=== PATIENT | male | born 1965 | race Caucasian/White ===

== ENCOUNTER 2020-07-21 10:47 | Inpatient (IN) | payer SELFPAY ==
--- NOTE | 2020-07-21 11:04 | CT ---
Exam: CT brain PROVIDED CLINICAL HISTORY: Slurred speech and dizziness COMPARISON: None FINDINGS: The ventricular system is normal in size and morphology. No evidence for intracranial hemorrhage or mass effect. The extracranial soft tissues and osseous structures demonstrate no evidence for an acute abnormality. Paranasal sinus mucosal disease is demonstrated. IMPRESSION: No evidence for intracranial hemorrhage or mass effect. Findings discussed with Dr. Coppola 11:01 AM 06/25.
[2020-07-21 11:11] LABS: #Basophils 0.1 thou/uL (0.0-0.2); #Eosinphils 0.4 thou/uL (0.0-0.7); #Monocytes 0.6 thou/uL (0.11-0.59); #Neutrophils 3.9 thou/uL (1.40-6.50); %Basophils 1.2 % (0.0-1.0); %Eosinophils 5.1 % (0.0-10.0); %Lymphocytes 28.6 % (21.0-51.0); %Monocytes 9.3 % (0.0-10.0); %Neutrophils 55.9 % (42.0-75.0); Hemoglobin 15.2 g/dL (14.0-18.0); Mean Corpuscular HGB CONC 33.6 g/dL (32.0-36.0); Mean Corpuscular Hemoglobin 30.8 pg (27.0-31.0); Mean Corpuscular Volume 91.7 fL (78.0-98.0); Mean Platelet Volume 7.4 fL (7.4-10.4); Platelet Count 306 thou/uL (130-400); RBC Distribution Width 11.4 % (11.5-14.5); Red Blood Cell (RBC) Count 4.94 mill/uL (4.70-6.10); White Blood Cell (WBC) Count 6.9 thou/uL (4.8-10.8)
[2020-07-21 11:19] LABS: INR-International Normal Ratio 0.9; PTT 25.4 sec (22.9-36.1); Prothrombin Time 12.8 sec (12.0-14.7)
[2020-07-21 11:41] LABS: ALT (SGPT) 26 U/L (8-55); AST (SGOT) 16 U/L (5-34); Alkaline Phosphatase 106 U/L (40-110); Anion Gap 12 mmol/L (10-20); BUN (Urea Nitrogen) 12 mg/dL (8.4-25.7); Bilirubin, Total 0.7 mg/dL (0.2-1.2); CK (CPK) 61 U/L (30-200); Calc. Creatinine Clearance 0 mL/min (70-130); Calcium 8.7 mg/dL (7.8-10.44); Carbon Dioxide 26 mmol/L (22-29); Chloride 105 mmol/L (98-107); Globulin 3.2 g/dL (2.4-3.5); Glucose 124 mg/dL (70-105); Potassium 4.1 mmol/L (3.5-5.1); Protein, Total 7.2 g/dL (6.0-8.3); Sodium 139 mmol/L (136-145)
--- NOTE | 2020-07-21 11:57 | CT ---
EXAM: CT angiogram head and neck with IV contrast and 3-D reconstructions PROVIDED CLINICAL HISTORY: Level 1 stroke. Slurred speech and dizziness. COMPARISON: None FINDINGS: There is a normal arrangement of great vessels at the aortic arch which are patent. Portions of the r ight subclavian artery are obscured due to artifact from dense adjacent venous contrast. The left subclavian, innominate, and bilateral common carotid arteries are patent. Bilateral internal carotid arteries are patent. Patent bilateral vertebral arteries are present. The left vertebral artery is dominant. Basilar arter y and posterior cerebral arteries are patent bilaterally Bilateral anterior cerebral and middle cerebral arteries are patent without focal stenosis or branch occlusion. No intracranial aneurysm is visualized. Mucosal thickening is present involving the bilateral maxillary antra, sphenoid sinuses, and bilatera l ethmoidal air cells. Visualized upper lung zones are clear. Small subcentimeter increased density focus is seen in the right parotid gland likely due to an intra parotid lymph node. IMPRESSION: 1. No focal stenosis or branch occlusion is seen involving the [place] of [place] or vertebrobasilar sy stem. 2. Patent bilateral internal carotid arteries. 3. Above findings discussed Dr. Coppola in the emergency department on 07/21/2020 at 1152 hours
--- NOTE | 2020-07-21 11:59 | RAD ---
EXAM: Portable chest PROVIDED CLINICAL HISTORY: Slurred speech COMPARISON: None FINDINGS: Cardiac and mediastinal silhouette is within normal limits. No focal consolidation, pleural fluid or pneumothorax evident. IMPRESSION: No evidence for an acute cardiopulmonary process.
[2020-07-21] MEDS ORDERED: Iopamidol-370 76% 500 ML 1 ML ONE (13:34)
--- NOTE | 2020-07-21 13:38 | PDOC.FPRHP ---
- History of Present Illness Chief Complaint: dizziness History of Present Illness: 55 y/o M with no known PMHx presented to the ER for symptoms of dizziness, slurred speech, and facial drooping. Pt states he was in the check out mikie at [facility] this AM when he began to feel "funny". He became dizzy and his drove them to their home. She then noticed he was having slurred speech and R sided facial drooping, and immediately brought him to the ER. Per pt and his , they arrived in the ER within 30 minutes of symptom onset. He denies any focal weakness other than his R sided facial drooping, but states that during the episode he did have difficulty walking and blurry vision. After arrival in the ER, his symptoms began to somewhat improve. TPA was administered in the ER and patient reports complete resolution of his symptoms. ED Course: CT head: no acute intracranial hemorrhage, CTA head/neck: no occlusion/stenosis of large vessels, TPA administered from 1216 to 1316. 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 PSHx: bilateral inguinal hernia repair FHx: father of ME age 56, grandfather of [place] Social: etoh use approx 12 beers each weekend day, no etoh use during week, chewing tobacco 1 can/day, denies drug use - Review of Systems General: denies: fever/chills, fatigue Eyes: reports: vision changes ENT: denies: nasal congestion, rhinorrhea Respiratory: denies: cough, congestion, shortness of breath Cardiovascular: denies: chest pain, palpitation, edema Gastrointestinal: denies: nausea, vomiting, diarrhea, constipation, abdominal pain Genitourinary: denies: dysuria Skin: denies: rashes Musculoskeletal: denies: pain Neurological: reports: other (dizziness, facial drooping, slurred speech). denies: numbness, syncope, seizure, weakness Psychological: denies: anxiety, depression - Vital signs BP:130/83 HR: 73 RR: 16 Tmax: 97.9F Pox: 98% on RA Wt: 77.9 kg - Physical Exam Constitutional: NAD, awake, alert and oriented, well developed HEENT: normocephalic and atraumatic, EOMI, conjunctiva clear, no scleral icterus, grossly normal hearing, MMM, other (poor dentition) Neck: supple Chest: no-tender to palpation Heart: RRR, normal S1/S2, no murmurs/rubs/gallops, pulses present, no edema Lungs: CTAB, no respiratory distress, no rales/rhonchi, no wheezing, no retractions Abdomen: soft, non-tender, bowel sounds present Musculoskeletal: normal structure Neurological: CN II-XII intact, normal sensation, other (4/5 RLE weakness, 5/5 LLE; 5/5 strength bilat UE) Skin: capillary refill <2 seconds Heme/Lymphatic: no unusual bruising or bleeding Psychiatric: normal mood and affect, good judgment and insight, intact recent and remote memory FMR H&P: Results - Labs Result Diagrams: 07/21/20 10:54 07/21/20 10:54 Lab results: WBC 6.9 thou/uL (4.8-10.8) 07/21/20 10:54 Hgb 15.2 g/dL (14.0-18.0) 07/21/20 10:54 Hct 45.3 % (42.0-52.0) 07/21/20 10:54 MCV 91.7 fL (78.0-98.0) 07/21/20 10:54 Plt Count 306 thou/uL (130-400) 07/21/20 10:54 Neutrophils % 55.9 % (42.0-75.0) 07/21/20 10:54 Sodium 139 mmol/L (136-145) 07/21/20 10:54 Potassium 4.1 mmol/L (3.5-5.1) 07/21/20 10:54 Chloride 105 mmol/L (98-107) 07/21/20 10:54 Carbon Dioxide 26 mmol/L (22-29) 07/21/20 10:54 BUN 12 mg/dL (8.4-25.7) 07/21/20 10:54 Creatinine 1.23 mg/dL (0.7-1.3) 07/21/20 10:54 Glucose 124 mg/dL (70-105) H 07/21/20 10:54 Calcium 8.7 mg/dL (7.8-10.44) 07/21/20 10:54 Total Bilirubin 0.7 mg/dL (0.2-1.2) 07/21/20 10:54 AST 16 U/L (5-34) 07/21/20 10:54 ALT 26 U/L (8-55) 07/21/20 10:54 Alkaline Phosphatase 106 U/L (40-110) 07/21/20 10:54 Creatine Kinase 61 U/L (30-200) 07/21/20 10:54 Serum Total Protein 7.2 g/dL (6.0-8.3) 07/21/20 10:54 Albumin 4.0 g/dL (3.5-5.0) 07/21/20 10:54 - EKG Interpretation EKG: NSR, RBBB, rate 73 FMR H&P: A/P - Plan Acute CVA, presumed RLE weakness Clinical signs of CVA on presentation with HINTS exam positive for head impulse per report, improved with administration of tPA in the ED. CT head negative for acute bleeding, CTA head/neck negative for stenosis of major vasculature. VSS. 4/5 RLE weakness, suspect due to stroke. - admit to CCU for frequent neuro checks, per protocol - strict bedrest for 24hr s/p tPA - monitor telemetry - maintain BP <180/105, treat PRN - PPI for GI ppx s/p tPA - echo pending - MRI brain pending - start atorvastatin 40 mg PO daily - consult to stroke team: neurology, PT/OT - may advance to heart healthy diet when passed BSS - no blood draws x 24 hr after tPA - will check TSH, Hga1c, lipid panel; add to drawn labs or defer until 24hr after tPA Alcohol use Endorses 12 beers each wednesday/wednesday, no etoh during weekdays. Last drink yesterday. - ASE protocol, please page for high scores before administering medication Tobacco use Chewing tobacco, 1 can/day. - nicotine patch - encourage tobacco cessation Dispo: Admit to CCU for 24 hr due to frequent neuro checks s/p tPA (administered 1216 - 1316 on 07/21). Likely will be able to transfer to stroke after this. Will need PT/OT evaluation, MRI, echo prior to discharge. Anticipated LOS >48hr. FMR H&P: Upper Level - Plan Date/Time: 07/21/20 3256 I, Ros Ac, have evaluated this patient and agree with findings/plan as outlined by public relations intern resident. Pertinent changes/additions are listed here. 55 yo M basim with no prior PMH presents for slurred speech, vertigo, right facial droop, and unsteadiness on his feet that occurred at 10 AM this morning while at [facility]. His slurred speech had resolved by the time he arrived at the ER, however he remained dizzy with unsteadiness. In the ED, CT brain and CTA head/neck were normal. HINTS exam was concerning for central finding on head impulse test. TPA was given at 1216 after discussion with the patient and his . His dizziness and unsteadiness resolved after administration of TPA. On Neuro exam, CN 2-12 were intact. Strength 5/5 BUE, strength 5/5 at ankles but 4/5 for RLE hip flexion compared to 5/5 LLE for hip flexion. FTN, heel to gilmore testing were normal. No dysdiadochokinesis present. Speech was not slurred. A/P: CVA - Positive HINTS exam per Ed physicians - CT brain and CTA head/neck WNL - TPA administered @ 1216 on 07/21 - TPA protocol ordered. Avoid lab draws for next 24 hours. Monitor NIH scores per protocol. - MRI and echo ordered - Stroke team consulted, Dr. Nicholson, appreciate recommendations - TSH, A1C, lipid panel added to [id number] labs - NPO for speech, then HH - Add statin, hold starting aspirin for now due to risk of bleeding - PPI Nicotine abuse -Patient dips 1 can/day -Patch added Alcohol abuse -Binges on weekends, last drink yesterday evening. Reports he drank 12 beers yesterday. -He reports he does not drink during the week -Unlikely have alcohol withdrawal, however ASE protocol has been added Laura Ac MD PGY3 Addendum - Attending - Attending Attestation Date/Time: 07/21/20 8440 I personally evaluated the patient and discussed the management with Dr. Palumbo/Yashira. I agree with the History, Examination, Assessment and Plan documented above with any addition or exceptions noted below. Presented with symptoms concerning for posterior circulation CVA. s/p tPA. no PMH but poor outpt f/u. exam unremarkable s/p tPA. continue post tPA care. MRI, TTE, FLP tomorrow. [facility] team consulted.
[2020-07-21 14:01] LABS: SARS-CoV-2 NAA Rapid Test Not Detected (NotDetected)
[2020-07-21] MEDS ORDERED: Labetalol HCl 100 MG/20 ML VIAL SLOW IVP PRN (14:11)
[2020-07-21] MEDS ORDERED: niCARdipine 25 MG in Sodium Chloride 0.9% 250 ML 250 ML IVPB PRN (14:11)
[2020-07-21] MEDS ORDERED: hydrALAZINE 20 MG/ML VIAL SLOW IVP PRN (14:11)
[2020-07-21] MEDS ORDERED: Communication Order-Pharmacy FS SCH (14:11)
[2020-07-21] MEDS ORDERED: Acetaminophen 325 MG TAB PO PRN (14:11)
[2020-07-21] MEDS ORDERED: Thiamine 100 MG TAB PO SCH (14:45)
[2020-07-21 14:58] LABS: Hemoglobin A1c 5.6 % (4.0-6.0)
[2020-07-21 16:04] VITALS: BMI 28.2
[2020-07-21] MEDS: Nicotine 14 MG PATCH TD SCH (16:44)
[2020-07-21 17:23] LABS: Cardiac Risk 6.3 (Less than 4.5)
[2020-07-21] MEDS ORDERED: Atorvastatin Calcium 40 MG TAB PO SCH (21:00)
--- NOTE | 2020-07-22 06:14 | PDOC.FM ---
- Subjective Subjective: Patient was resting comfortably in bed at the time of evaluation. Patient denied any acute overnight events, but did endorse some mild chest wall tenderness that he attributed to "sleeping on it wrong." Patient denied worrisome associated symptoms such as crushing chest pain, N/V, diaphoresis or visual disturbances. Patient also denied repeat episodes of confusion, slurred speech or facial drooping. - Objective Vital Signs & Weight: Vital Signs (12 hours) Temp Pulse Ox 07/22/20 04:00 98.4 F 07/22/20 00:00 98.0 F 07/21/20 20:00 94 L 07/21/20 19:00 98.0 F Weight Weight 85 kg Most Recent Monitor Data Heart Rate from ECG 59 NIBP 92/51 NIBP BP-Mean 64 Respiration from ECG 16 SpO2 94 I&O: 07/20/20 07/21/20 07/22/20 06:59 06:59 06:59 Intake Total 630 Output Total 940 Balance -310 Result Diagrams: 07/21/20 10:54 07/21/20 10:54 Phys Exam - Physical Examination Constitutional: NAD HEENT: PERRLA, moist MMs, sclera anicteric, oral pharynx no lesions Neck: no nodes, supple, full ROM Respiratory: no wheezing, no rales, no rhonchi, clear to auscultation bilateral Cardiovascular: RRR, no significant murmur, no rub Gastrointestinal: soft, non-tender, no distention, positive bowel sounds Musculoskeletal: pulses present Neurological: non-focal, normal sensation, moves all 4 limbs NIH: 0 Psychiatric: normal affect, A&O x 3 No tremor noted - low suspicion for EtOH Withdrawal Dx/Plan (1) CVA (cerebral vascular accident) Code(s): I63.9 - CEREBRAL INFARCTION, UNSPECIFIED Status: Acute (2) Tobacco abuse Code(s): Z72.0 - TOBACCO USE Status: Chronic (3) ETOH abuse Code(s): F10.10 - ALCOHOL ABUSE, UNCOMPLICATED Status: Chronic - Plan Plan: Patient is a 55 y/o male with no known PMH who presented to the ED for evaluation after an episode of facial drooping, slurred speech and mild confusion. #Acute CVA, suspected -Clinical signs of CVA on presentation with HINTS exam positive for head impulse, per report -Patient's symptoms resolved s/p tPA administration in the ED -MRI: Pending -Echo: Pending -CT Head: NAF -CTA Head/Neck: NAF -CXR: NAF -FLP: Tri(213) Chol(194) LDL(120) HDL(31) - will increase Atorvastatin from 40 mg PO daily to 80 mg PO daily based on likely Hx of CVA -HgA1c: 5.6 -TSH: 1.73 -Trop: 0.017 -Neuro Consult: Pending -Stroke Team Consult: Pending -PT/OT Consult: Pending -Maintain BP <180/105, treat PRN -No blood draws for 24H s/p tPA administration #Alcohol use -Reports a Hx of 12 servings of EtOH per day on the weekends, last drink was 07/20 -Will supplement diet with Thiamine and Folate -ASE Protocol - discussed with Nursing Staff on 07/22 #Tobacco use -Reports a Hx of Tobacco Abuse - 1 can per day -Nicotine Patch 21 mg TD daily -Encouraged Tobacco Abuse cessation s/p DC PCP: None Code: Full Diet: HH Activity: Strict Bedrest s/p tPA Administration VTE PPx: None s/p tPA Administration IVF: None GI PPx: Protonix 40 mg daily Dispo: Patient is currently stable and admitted to the CCU for 24H of monitoring w/ frequent Neuro Check s/p tPA administration, per protocol. Per report, tPA was administered from 1216 - 1316 on 07/21 - will likely will be able to transfer to Stroke Floor if remainder of monitoring period remains unremarkable. Risk Stratification completed, with Atorvastatin 80 mg PO daily added to current medication regimen - will add daily ASA at DC. MRI, Echo pending. Neuro, PT/OT, Stroke Team consults currently pending. Will continue to manage EtOH Abuse and Tobacco Abuse as per above. Expected LOS <48H. Addendum - Attending - Attending Attestation Date/Time: 07/22/20 7816 I personally evaluated the patient and discussed the management with Dr. Joyce. I agree with the History, Examination, Assessment and Plan documented above with any addition or exceptions noted below.
[2020-07-22] MEDS: Thiamine 100 MG TAB PO SCH (08:08)
[2020-07-22] MEDS: Folic Acid 1 MG TAB PO SCH (08:08)
[2020-07-22] MEDS ORDERED: FLU VACC QS2020-21(6MOS UP)/PF 60 MCG/0.5 ML SYRINGE IM ONE (09:00)
--- NOTE | 2020-07-22 09:53 | MRI ---
MRI BRAIN NONCONTRAST: DATE: 07/22/2020 HISTORY: 55-year-old male status post TPA for stroke: Dysarthria and dizziness FINDINGS: There is no obstructive hydrocephalus. There is no midline shift or any other evidence of mass effect . There is no extra-axial fluid collection. There are minimal chronic ischemic white matter changes due to microvascular atherosclerosis. There is otherwise no major intra-axial signal abnormality, rec ent hemorrhage, or restricted diffusion. IMPRESSION: 1) minimal chronic ischemic white matter changes. 2) otherwise negative
--- NOTE | 2020-07-22 12:50 | CON ---
NEUROLOGY CONSULTATION DATE OF CONSULTATION: 07/22/2020 REASON FOR CONSULTATION: TIA, status post tPA. HISTORY OF PRESENT ILLNESS: Mr. Capps is a 55-year-old male with history of significant for alcohol abuse, presented to the emergency room with dizziness, slurred speech and facial droop. Per patient, he was in the checkout line at the [facility] on the morning of 07/21/2020, when he began to feel funny and feel dizzy, and the drove him to their home. She noted that he was having slurred speech and right facial droop, so she decided to bring him to the emergency room for further evaluation. Per the patient and when they arrived in the emergency room, there were within 30 minutes of symptom onset. Head CT was done, which was negative for acute intracranial pathology. CTA of the head and neck did not reveal hemodynamically significant stenosis. The patient denies any focal weakness, focal paresthesias, nausea, vomiting, headache, chest pain, abdominal pain, recent illness or recent exposure to COVID-19. He does have difficulty walking and blurred vision. He was given tPA around 12:15, which he finished around 01:15 and afterwards, the symptoms resolved completely. He is back to the baseline. ALLERGIES: NO KNOWN DRUG ALLERGIES. PAST MEDICAL HISTORY: Alcohol abuse. No medical care for the last 20 years. PAST SURGICAL HISTORY: Bilateral inguinal hernia repair. FAMILY HISTORY: The father of [place] at the age of 46. Grandfather of [place]. SOCIAL HISTORY: The patient with history of alcohol abuse, but 12 beers each weekend. No alcohol use during week. Chewing tobacco one can per day. Denies illegal drug use. REVIEW OF SYSTEMS: All systems reviewed and were negative except the pertinent positives and negatives mentioned in the HPI. Vital Signs & Weight: Vital Signs (12 hours) Temp Pulse Ox 07/22/20 04:00 98.4 F 07/22/20 00:00 98.0 F 07/21/20 20:00 94 L 07/21/20 19:00 98.0 F Weight Weight 85 kg Most Recent Monitor Data Heart Rate from ECG 59 NIBP 92/51 NIBP BP-Mean 64 Respiration from ECG 16 SpO2 94 I&O: 07/20/20 07/21/20 07/22/20 06:59 06:59 06:59 Intake Total 630 Output Total 940 Balance -310 PHYSICAL EXAMINATION: GENERAL: Alert, awake male, in no acute distress. CVS: Regular rate and rhythm. CHEST: Clear. ABDOMEN: Soft. NECK: Supple. NEUROLOGICAL: Mental status, the patient is alert and oriented to person, place, and time. Recent and remote memory intact. Fund of knowledge is appropriate. Speech is clear. Cranial nerves II through XII intact. Motor, muscle tone and bulk are normal. Moving all 4 extremities equally and symmetrically. Strength 5/5 bilaterally. Sensory intact. Cerebellar, finger-nose testing intact. Gait deferred due to patient's safety reason. DATA REVIEWED: Reviewed the labs which were significant for mild hyperglycemia of 124. EKG showed normal sinus rhythm. Head CT did not reveal acute intracranial pathology. ASSESSMENT AND PLAN: (1) Transient Ischemic Attack Status: Acute (2) Tobacco abuse Code(s): Z72.0 - TOBACCO USE Status: Chronic (3) ETOH abuse Code(s): F10.10 - ALCOHOL ABUSE, UNCOMPLICATED Status: Chronic Mr. Terrence Capps is a 55-year-old male, who presented with acute onset dysarthria, dizziness, and right facial droop, which resolved after the administration of tPA. Head CT reviewed which was negative for acute bleed. CT of the head and neck did not reveal hemodynamically significant stenosis. MRI of the brain did not reveal any acute intracranial pathology. 2D echo completed, awaiting results. Repeat head CT 24 hours post tPA if negative, then start aspirin and high-intensity statin for secondary stroke prevention. Strict control of blood pressure and blood glucose. WA protocol. Continue medical management per primary team, PT/OT/Speech. DVT prophylaxis. PLAN: Discussed in detail with the patient, at bedside and also with the nursing staff. We will continue to follow. Thank you for the consult. Job ID: [id number] MTDD
--- NOTE | 2020-07-22 13:29 | CT ---
Exam: Head CT without contrast HISTORY: Status post TPA. Evaluate for hemorrhage COMPARISON: 07/21/2020 FINDINGS: Hemorrhage: No intraparenchymal hemorrhage or extra-axial hematoma. Brain parenchyma: Cortical lacey-white matter differentiation is preserved. No mass effect or midline shift. Basilar cisterns are patent. Ventricular system: Ventricles and sulci are patent and symmetric. Calvarium: Intact. Sinuses and mastoid air cells: Stable sinus opacification IMPRESSION: No evidence of intracranial hemorrhage.
[2020-07-22] MEDS: Nicotine 14 MG PATCH TD SCH (16:26)
[2020-07-22] MEDS ORDERED: Atorvastatin Calcium 40 MG TAB PO SCH (21:00)
[2020-07-23 05:23] VITALS: TEMP 97.5
--- NOTE | 2020-07-23 06:50 | PDOC.FM ---
- Subjective Subjective: Patient was resting comfortably in bed at the time of evaluation. Patient denied any acute overnight events, particularly with regard to mental status changes, feelings of dizziness, confusion, difficulty with ambulation or falls, as well as chest pain, SOB, ABD pain or difficulty passing urine or stool. Per review of Telemetry Floor records, patient maintained NSR in the 70s and 80s overnight, and no acute events were reported by Nursing Staff. - Objective Vital Signs & Weight: Vital Signs (12 hours) Temp Pulse Resp BP Pulse Ox 07/23/20 04:30 97.5 F L 60 14 92/60 96 07/22/20 22:54 97.9 F 62 18 111/78 99 07/22/20 20:00 100 07/22/20 19:00 98.0 F Weight Weight 85 kg Most Recent Monitor Data Heart Rate from ECG 62 NIBP 103/67 NIBP BP-Mean 79 Respiration from ECG 21 SpO2 95 I&O: 07/21/20 07/22/20 07/23/20 06:59 06:59 06:59 Intake Total 630 1200 Output Total 940 1475 Balance -310 -275 Result Diagrams: 07/21/20 10:54 07/21/20 10:54 Phys Exam - Physical Examination Constitutional: NAD HEENT: moist MMs Neck: supple, full ROM Respiratory: no wheezing, no rales, no rhonchi, clear to auscultation bilateral Cardiovascular: RRR, no significant murmur, no rub Gastrointestinal: soft, non-tender, no distention, positive bowel sounds Musculoskeletal: no edema, pulses present Neurological: non-focal, moves all 4 limbs Psychiatric: normal affect, A&O x 3 Dx/Plan (1) CVA (cerebral vascular accident) Code(s): I63.9 - CEREBRAL INFARCTION, UNSPECIFIED Status: Ruled-out (2) Tobacco abuse Code(s): Z72.0 - TOBACCO USE Status: Chronic (3) ETOH abuse Code(s): F10.10 - ALCOHOL ABUSE, UNCOMPLICATED Status: Chronic (4) TIA (transient ischemic attack) Code(s): G45.9 - TRANSIENT CEREBRAL ISCHEMIC ATTACK, UNSPECIFIED Status: Acute - Plan Plan: Patient is a 55 y/o male with no known PMH who presented to the ED for evaluation after an episode of facial drooping, slurred speech and mild confusion. #TIA -Clinical signs of TIA / CVA on presentation with HINTS exam positive for head impulse, per report -Patient's symptoms resolved s/p tPA administration in the ED, administered from ~1200 - 1330 -MRI: NAF -Echo: EF (40-45%), no thrombus or wall defects noted -CT Head: NAF x2 -CTA Head/Neck: NAF -CXR: NAF -FLP: Tri(213) Chol(194) LDL(120) HDL(31) - added Atorvastatin 80 mg PO daily -HgA1c: 5.6 -TSH: 1.73 -Trop: 0.017 -Will start ASA this AM -Neuro: Consulted, recommended initiation of ASA and statin as per above based on likelihood of TIA -Stroke Team consulted - no further recs from PT/OT/Speech -Will plan for DC this AM #Alcohol Abuse -Reports a Hx of 12 servings of EtOH per day on the weekends, last drink was 07/20 -No evidence of EtOH Withdrawal during hospitalization -Will supplement diet with Thiamine and Folate until DC -ASE Protocol - discussed with Nursing Staff on 07/22 #Tobacco Abuse -Reports a Hx of Tobacco Abuse - 1 can of snuff per day -Nicotine Patch 14 mg TD daily -Encouraged Tobacco Abuse cessation s/p DC PCP: None Code: Full Diet: HH Activity: Ad forrest VTE PPx: SCDs IVF: None GI PPx: Protonix 40 mg PO daily Dispo: Patient is currently stable and admitted to the Telemetry Floor following TIA. Due to the timing of the patient's symptoms, tPA was administered in the ED with no notable sequelae. Risk Stratification completed, with ASA 81 mg PO daily and Atorvastatin 80 mg PO daily added to patient's current medication regimen. All standard imaging performed and unremarkable. Patient has been evaluated by Neuro, PT/OT/Speech - recs appreciated. Will likely DC this AM and encourage patient to establish care with a PCP following DC. Expected LOS <12H. Addendum - Attending - Attending Attestation Date/Time: 07/23/20 4136 I personally evaluated the patient and discussed the management with Dr. Joyce. I agree with the History, Examination, Assessment and Plan documented above with any addition or exceptions noted below. Patient stable. Stable for discharge on ASA and statin therapy. No need for therapy services. Suspect TIA as final diagnosis.
[2020-07-23 07:58] VITALS: BP 116/72
[2020-07-23] MEDS ORDERED: Aspirin 81 mg Enteric Coated Tablet PO SCH (09:00)
[2020-07-23] MEDS: Thiamine 100 MG TAB PO SCH (09:08)
[2020-07-23] MEDS: Folic Acid 1 MG TAB PO SCH (09:08)
--- NOTE | 2020-07-23 10:37 | CT ---
EXAM: CT angiogram head and neck with IV contrast and 3-D reconstructions PROVIDED CLINICAL HISTORY: Level 1 stroke. Slurred speech and dizziness. COMPARISON: None FINDINGS: There is a normal arrangement of great vessels at the aortic arch which are patent. Portions of the r ight subclavian artery are obscured due to artifact from dense adjacent venous contrast. The left subclavian, innominate, and bilateral common carotid arteries are patent. Bilateral internal carotid arteries are patent. Patent bilateral vertebral arteries are present. The left vertebral artery is dominant. Basilar arter y and posterior cerebral arteries are patent bilaterally Bilateral anterior cerebral and middle cerebral arteries are patent without focal stenosis or branch occlusion. No intracranial aneurysm is visualized. Mucosal thickening is present involving the bilateral maxillary antra, sphenoid sinuses, and bilatera l ethmoidal air cells. Visualized upper lung zones are clear. Small subcentimeter increased density focus is seen in the right parotid gland likely due to an intra parotid lymph node. IMPRESSION: 1. No focal stenosis or branch occlusion is seen involving the [place] or vertebrobasilar sy stem. 2. Patent bilateral internal carotid arteries. 3. Above findings discussed Dr. Coppola in the emergency department on 07/21/2020 at 1152 hours Transcribed Date/Time: 07/23/2020 10:36 AM
--- NOTE | 2020-07-23 11:56 | PDOC.NEUPN ---
- Subjective Encounter Date: 07/23/20 Subjective: Patient seen this morning and denies any new complaints. - Objective Vital Signs & Weight: Vital Signs (12 hours) Temp Pulse Resp BP Pulse Ox 07/23/20 09:05 94 L 07/23/20 07:06 97.5 F L 62 18 116/72 94 L 07/23/20 04:30 97.5 F L 60 14 92/60 96 Weight Weight 187 lb 6.287 oz Most Recent Monitor Data Heart Rate from ECG 62 NIBP 103/67 NIBP BP-Mean 79 Respiration from ECG 21 SpO2 95 I&O: 07/22/20 07/23/20 07/24/20 06:59 06:59 06:59 Intake Total 630 1200 Output Total 940 1475 Balance -310 -275 Result Diagrams: 07/21/20 10:54 07/21/20 10:54 Radiology Reviewed by me: Yes EKG Reviewed by me: Yes ROS - Review of Systems Constitutional: denies: fever, chills, sweats, weakness, malaise, other Eyes: denies: pain, vision change, conjunctivae inflammation, eyelid inflammation, redness, other Gastrointestinal: denies: nausea, vomiting, abdominal pain, diarrhea, constipation, melena, hematochezia, other Genitourinary: denies: dysuria, frequency, incontinence, hematuria, retention, other Musculoskeletal: denies: neck pain, shoulder pain, arm pain, back pain, hand pain, leg pain, foot pain, other Skin: denies: rash, lesions, edson, bruising, other Neurological: denies: weakness, numbness, incoordination, change in speech, confusion, seizures, other - Exam General Appearance: awake alert Eye: PERRL ENT: normocephalic atraumatic Neck: supple Respiratory: CTAB Cardiovascular: RRR Gastrointestinal: soft Extremities: no cyanosis Skin: normal turgor Neurological: no focal deficits, no new deficit Musculoskeletal: normal tone PSYCH: normal affect, normal behavior, A&O x 3, oriented to person, oriented to place, oriented to time Results - Labs Result Diagrams: 07/21/20 10:54 07/21/20 10:54 Lab results: WBC 6.9 thou/uL (4.8-10.8) 07/21/20 10:54 Hgb 15.2 g/dL (14.0-18.0) 07/21/20 10:54 Hct 45.3 % (42.0-52.0) 07/21/20 10:54 MCV 91.7 fL (78.0-98.0) 07/21/20 10:54 Plt Count 306 thou/uL (130-400) 07/21/20 10:54 Neutrophils % 55.9 % (42.0-75.0) 07/21/20 10:54 Sodium 139 mmol/L (136-145) 07/21/20 10:54 Potassium 4.1 mmol/L (3.5-5.1) 07/21/20 10:54 Chloride 105 mmol/L (98-107) 07/21/20 10:54 Carbon Dioxide 26 mmol/L (22-29) 07/21/20 10:54 BUN 12 mg/dL (8.4-25.7) 07/21/20 10:54 Creatinine 1.23 mg/dL (0.7-1.3) 07/21/20 10:54 Glucose 124 mg/dL (70-105) H 07/21/20 10:54 Calcium 8.7 mg/dL (7.8-10.44) 07/21/20 10:54 Total Bilirubin 0.7 mg/dL (0.2-1.2) 07/21/20 10:54 AST 16 U/L (5-34) 07/21/20 10:54 ALT 26 U/L (8-55) 07/21/20 10:54 Alkaline Phosphatase 106 U/L (40-110) 07/21/20 10:54 Creatine Kinase 61 U/L (30-200) 07/21/20 10:54 Troponin I 0.017 ng/mL (< 0.028) 07/21/20 10:54 Serum Total Protein 7.2 g/dL (6.0-8.3) 07/21/20 10:54 Albumin 4.0 g/dL (3.5-5.0) 07/21/20 10:54 - Radiology Interpretation MRI - head Additional Comment: MRI of the brain was negative for acute intracranial pathology. PN A/P (1) TIA (transient ischemic attack) Code(s): G45.9 - TRANSIENT CEREBRAL ISCHEMIC ATTACK, UNSPECIFIED Status: Acute (2) ETOH abuse Code(s): F10.10 - ALCOHOL ABUSE, UNCOMPLICATED Status: Chronic (3) Tobacco abuse Code(s): Z72.0 - TOBACCO USE Status: Chronic - Plan Daily Plan: plan discussed w/ family, PT/OT, speech therapy, out of bed/ambulate Mr. Capps is a 55-year-old male with medical history significant for alcohol abuse presented with strokelike symptoms. His symptoms resolved after the administration of TPA. Most likely transient ischemic attack. MRI of the brain reviewed which was negative for acute intracranial pathology Head CT 24 hours post TPA was negative for bleed. 2D echo showed left ventricular ejection fraction 40 to 45%. No thrombus or or PFO. CTA of the head and neck did not reveal hemodynamically significant stenosis. Continue aspirin for secondary stroke prevention. Fasting lipid profile showedFLP: Tri(213) Chol(194) LDL(120) HDL(31) . Continue high intensity statin for secondary stroke prevention. Strict control of blood pressure and blood glucose. Telemetry reviewed which did not reveal any arrhythmias. Neurochecks every 4 hours. Continue medical management per primary team. Patient cleared by PT/OT/speech since back to the baseline with no deficits. Plan discussed in detail with the patient and the at bedside and also the nursing staff.
--- NOTE | 2020-07-23 14:42 | DIS ---
DATE OF ADMISSION: 07/21/2020 DATE OF DISCHARGE: 07/23/2020 RESIDENT: Kareem Joyce MD DISCHARGE ATTENDING: Tigre Franco MD CONSULTATIONS: Padmini Nicholson MD, Neurology. PROCEDURES: Brain CT performed on 07/21/2020, which demonstrated no evidence for acute intracranial hemorrhage or mass effects. Chest x-ray performed on 07/21/2020, which demonstrated no evidence for acute cardiopulmonary processes. CT [place] angio with contrast performed on 07/21/2020, which demonstrated no focal stenosis or branch occlusion seen involving the [place] or vertebrobasilar system. Patent bilateral internal carotid arteries. Brain MRI performed on 07/22/2020, which demonstrated minimal chronic ischemic white matter changes and was otherwise negative. Repeat brain CT scan performed on 07/22/2020, which demonstrated no evidence of intracranial hemorrhage. TPA administration performed in the emergency department on 07/21/2020. PRIMARY DIAGNOSIS: Transient ischemic attack. SECONDARY DIAGNOSES: Alcohol abuse, tobacco abuse, and chronic kidney disease. DISCHARGE MEDICATIONS: 1. Aspirin 81 mg p.o. daily. 2. Atorvastatin 80 mg p.o. daily. DISCONTINUED MEDICATIONS: None. HISTORY OF PRESENT ILLNESS AND HOSPITAL COURSE: The patient is a 55-year-old male with no known past medical history, presented to the emergency department for symptoms of dizziness, slurred speech, and facial drooping. The patient states that he was in the checkout line at a local store that morning when he began to feel "funny." The patient became dizzy and his drove them home. However, she quickly noticed that he was having slurred speech and facial drooping and subsequently rerouted to the nearest emergency department. Per the patient and the patient's , they arrived in the emergency department within 30 minutes of symptom onset. The patient denied any focal weakness other than right-sided facial drooping, but stated during the episode that he did have difficulty walking and blurry vision. After arrival in the emergency department, the patient's symptoms began to somewhat improve. Imaging was performed in the emergency department. The results of which are mentioned elsewhere; however, most notable was the fact that the patient did not demonstrate any acute intracranial hemorrhage as seen on CT brain, and as such, tPA was administered in the emergency department. At which time, the patient endorsed complete resolution of all symptoms. The patient was subsequently transferred to the ICU for request of 24-hour monitoring status post tPA administration consisting of no needle sticks and strict bedrest. The patient's condition remained largely improved in comparison to the patient's reported symptoms as he had no focal deficits noted throughout his hospitalization. Neurology was consulted as was Physical Therapy, Occupational Therapy, and Speech in accordance with [facility] guidelines with regard to CVA/TIA workup. No additional findings were noted, and the diagnosis of TIA was made. As the patient was stable and at his baseline, he was subsequently prepped for discharge. Prior to discharge, the patient's vital signs were recorded as temperature 97.5, pulse 62 beats per minute, blood pressure 116/72, respirations 18 per minute, oxygen saturation 94% on room air. Laboratory analysis revealed a white blood cell count of 6.9, hemoglobin of 15.2, hematocrit 45.3, platelet count of 306. The coagulation panel revealed a PT of 12.8, INR of 0.9, aPTT of 25.4. Chem panel revealed sodium of 139, potassium 4.1, chloride 105, carbon dioxide 26, BUN 12, creatinine 1.23, glucose of 124, calcium 8.7, total bilirubin 0.7, AST 16, ALT 26, alkaline phosphatase 106. Creatine kinase 61, troponin 0.017. Serum total protein 7.2, albumin 4, globulin 3.2. Triglycerides 213, cholesterol 194, LDL cholesterol 120, HDL cholesterol 31. TSH 1.7. The patient was screened both for influenza A and B as well as coronavirus, was found to be negative for all 3. DISPOSITION: Stable. DISCHARGE INSTRUCTIONS: 1. Location: Home. 2. Diet: Heart healthy. 3. Activity: No restrictions. 4. Followup: The patient was encouraged to follow up with [facility] within 7 days in order to establish care, discuss his most recent hospitalization as well as manage his other chronic medical conditions. Job ID: [id number]
== END 2020-07-23 11:33 | disposition home or self-care (01) | DRG 63 ==
LOC: ERS 10:47 → CCU 13:40 → 2SE 07-22 23:09
PROVIDERS: ADMIT Family Medicine; ATTEND Family Medicine
DX: G45.9 Transient cerebral ischemic attack, unspecified (principal); F10.10 Alcohol abuse, uncomplicated; F17.220 Nicotine dependence, chewing tobacco, uncomplicated; R29.700 NIHSS score 0; R47.81 Slurred speech; N18.9 Chronic kidney disease, unspecified; R29.810 Facial weakness; R53.1 Weakness; Z20.822 Contact with and (suspected) exposure to COVID-19; Z84.89 Family history of other specified conditions; Z98.890 Other specified postprocedural states
CPT/HCPCS: 0240U; 36416; 70450; 70496; 70498; 70551; 71045; 80053; 80061; 82550; 83036; 84443; 84484; 85025; 85610; 85730; 93005; 93306; 94760; 96365; 96376; J2997; Q9967

== ENCOUNTER 2022-08-24 12:25 | Emergency (ER) | payer SELFPAY ==
[2022-08-24] MEDS ORDERED: Acetaminophen 500 MG TAB ONE (13:32)
[2022-08-24] MEDS ORDERED: Ketorolac Tromethamine 30 MG/ML VIAL ONE (13:32)
[2022-08-24 13:38] LABS: #Monocytes 0.9 thou/uL (0.11-0.59); %Basophils 0.7 % (0.0-1.0); %Eosinophils 0.4 % (0.0-10.0); %Lymphocytes 14.5 % (21.0-51.0); %Monocytes 13.5 % (0.0-10.0); Hemoglobin 15.4 g/dL (14.0-18.0); Mean Corpuscular HGB CONC 32.1 g/dL (32.0-36.0); Mean Corpuscular Hemoglobin 30.7 pg (27.0-31.0); Mean Corpuscular Volume 95.6 fl (78.0-98.0); Mean Platelet Volume 8.3 fL (7.4-10.4); Platelet Count 196 10x3/uL (130-400); RBC Distribution Width 12.1 % (11.5-14.5); Red Blood Cell (RBC) Count 5.01 mill/uL (4.70-6.10)
[2022-08-24 13:59] LABS: ALT (SGPT) 29 U/L (8-55); AST (SGOT) 30 U/L (5-34); Albumin 3.8 g/dL (3.5-5.0); Alkaline Phosphatase 79 U/L (40-110); Anion Gap 13 mmol/L (10-20); BUN (Urea Nitrogen) 13 mg/dL (8.4-25.7); Bilirubin, Total 0.5 mg/dL (0.2-1.2); Calc. Creatinine Clearance 0 mL/min (70-130); Calcium 8.2 mg/dL (7.8-10.44); Carbon Dioxide 23 mmol/L (22-29); Chloride 102 mmol/L (98-107); Estimated GFR 63; Globulin 2.9 g/dL (2.4-3.5); Glucose 123 mg/dL (70-105); Potassium 4.6 mmol/L (3.5-5.1); Protein, Total 6.7 g/dL (6.0-8.3); Sodium 133 mmol/L (136-145)
[2022-08-24 14:38] LABS: SARS-CoV-2 NAA Rapid Test DETECTED (NotDetected)
== END 2022-08-24 16:23 | disposition home or self-care (01) ==
LOC: ERS 12:25
DX: U07.1 COVID-19 (principal); F17.220 Nicotine dependence, chewing tobacco, uncomplicated
CPT/HCPCS: 36415; 80053; 84484; 85025; 87081; 87430; 93005; 96361; 96374; J1885